=== PATIENT | female | born 1945 | race Caucasian/White ===

== ENCOUNTER → 2025-02-10 09:34 | Outpatient (REF) | payer OTHER, SELFPAY | LOC: WDC 09:34 | PROVIDERS: ATTENDING PHYSICIAN Family Medicine | DX: Z12.31 Encounter for screening mammogram for malignant neoplasm of breast (principal); Z13.820 Encounter for screening for osteoporosis; M85.89 Other specified disorders of bone density and structure, multiple sites | CPT/HCPCS: 77063; 77067; 77080 ==